=== PATIENT | female | born 1935 | race Caucasian/White ===

== ENCOUNTER 2016-11-17 12:27 | Observation (INO) ==
--- NOTE | 2016-11-17 16:59 | Emergency Department Note ---
Disposition Clinical Impression: Periorbital cellulitis Disposition: Admitted As Inpatient Condition: Good General Adult HPI - General Chief complaint: ED Skin/Abscess/Foreign Body Stated complaint: Cellulitis to face / R eye Time Seen by Provider: 11/17/16 16:38 Source: patient Limitations: no limitations - History of Present Illness Pain Scale: 0 - Related Data Home Medications Medication Instructions Recorded Confirmed [place]-3/Dha/Epa/Fish Oil [Fish Oil 1 each PO DAILY 11/07/16 11/17/16 1,000 mg Softgel] Amlodipine Besylate 10 mg PO DAILY 11/17/16 11/17/16 Calcium Carbonate/Vitamin D3 1 each PO DAILY 11/17/16 11/17/16 [Calcium 600-Vit D3 200 Tablet] Doxycycline Monohydrate [Mondoxyne 100 mg PO BID 11/17/16 11/17/16 Nl] Multivitamin [Multi-Day Vitamins] 1 each PO DAILY 11/17/16 11/17/16 Allergies Allergy/AdvReac Type Severity Reaction Status Date / Time Amoxicillin [From Augmentin] Allergy Itching Verified 11/17/16 12:45 clavulanic acid Allergy Itching Verified 11/17/16 12:45 [From Augmentin] levofloxacin [From Levaquin] Allergy Rash Verified 11/17/16 12:45 sulfamethoxazole Allergy Rash Verified 11/17/16 12:45 [From Bactrim] trimethoprim [From Bactrim] Allergy Rash Verified 11/17/16 12:45 metoprolol AdvReac Fainting Verified 11/17/16 19:28 Past Medical History - Past Medical History Medical history: Reports: hypertension, other Psychiatric history: Reports: anxiety ATTACHE history: Reports: no ATTACHE history - Social History Smoking Status: Never smoker Smokeless Tobacco Status: No Alcohol use: Reports: none Drug use: Reports: none Physical Exam - General Limitations: no limitations General appearance: alert, in no apparent distress Course - Reevaluation(s) Reevaluation #1: I saw the patient with the resident, Dr. Gibbons. Patient presents from her PCP office with concern for increasing facial cellulitis that is not responding to outpatient antibiotics. The patient fell about 2-1/2 weeks ago. She had a lot of bruising and abrasion to her face. Since then she developed redness to the area of her face where the bruising was on the right-hand side. She was started on Keflex without response. She was given Bactrim in addition but developed a rash from that. She was switched to Levaquin but developed a rash on that. She is currently on doxycycline and today went for reevaluation and reports that the redness is still spreading, so she sent here. Talking with the patient she says that although the redness seems to be spreading a bit, there is no pain and there is improvement in the swelling. Clinically I see no indication of retro-orbital involvement. It is hard for me to say that the cellulitis is not improving on outpatient treatment. Although the redness is spreading by history, all the other things that one would expect with cellulitis are improving. We did do an evaluation to decide whether she actually got active cellulitis because there is no reason to admit her to the hospital for IV antibiotics if she is already getting better. We will do some lab work and some imaging. Disposition will be based on diagnostic results and reevaluation. Time: 17:04 Vital Signs Temperature 98.0 F 11/17/16 12:38 Pulse Rate 82 11/17/16 12:38 Respiratory Rate 17 11/17/16 12:38 Blood Pressure 170/77 11/17/16 12:38 O2 Sat by Pulse Oximetry 97 11/17/16 12:38 Temperature 98.0 F 11/17/16 20:38 Pulse Rate 78 11/17/16 20:38 Respiratory Rate 17 11/17/16 20:38 Blood Pressure 145/57 11/17/16 20:38 O2 Sat by Pulse Oximetry 95 11/17/16 20:38 Oxygen Delivery Oxygen Delivery Room Air Medical Decision Making - Lab Data Result diagrams: 11/17/16 17:14 11/17/16 17:14 Lab Results 11/17/16 11/17/16 11/17/16 Range/Units 17:14 17:14 17:14 WBC 7.9 (4.3-11.1) K/mcL RBC 4.58 (3.82-4.97) M/mcL Hgb 13.7 (11.5-15.4) g/dL Hct 40.7 (35.3-44.9) % MCV 88.9 (83.0-100.0) fL MCH 29.9 (28.0-33.3) pg MCHC 33.7 (31.6-35.5) g/dL RDW 13.4 (11.5-14.5) % Plt Count 273 (140-400) K/mcL MPV 10.8 (9.4-12.4) fL Immature Gran % 0.8 (0-4) % Seg Neutrophils % 63.9 % Lymphocytes % 27.6 % Monocytes % 6.3 % Eosinophils % 0.8 % Basophils % 0.6 % Neutrophils # 5.1 (1.6-8.9) K/mcL Lymphocytes # 2.2 (0.6-4.6) K/mcL Monocytes # 0.5 (0.0-1.3) K/mcL Eosinophils # 0.1 (0.0-0.6) K/mcL Basophils # 0.1 (0.0-0.2) K/mcL ESR 25 H (0-15) mm/hr Sodium 137 (136-145) mEq/L Potassium 3.8 (3.5-4.5) mEq/L Chloride 100 (98-109) mEq/L Carbon Dioxide 28 (19-29) mEq/L BUN 10 (7-20) mg/dL Creatinine 0.67 (0.57-1.11) mg/dL Est GFR ( Amer) > 60 (> 60) Est GFR (Non-Af Amer) > 60 (> 60) BUN/Creatinine Ratio 15 (6-26) Glucose 95 (70-99) mg/dL Calculated Osmolality 283 (280-300) Calcium 9.3 (8.6-10.8) mg/dL Attestation Statement - Attestation Attestation: I, Dr. Mena, examined this patient [id number] and my medical decision- making was reviewed with Dr. Gibbons, Resident Physician. I agree with the documented findings, disposition and treatment plan as described except to the extent set forth below. Please see my progress notes for details.
[2016-11-17] MEDS ORDERED: 0.9 % Sodium Chloride 500 ML IVC ONE (17:17)
--- NOTE | 2016-11-17 17:20 | Emergency Department Note ---
Disposition Clinical Impression: Periorbital cellulitis Qualifiers: Laterality: right Qualified Code(s): L03.213 - Periorbital cellulitis Disposition: Admitted As Inpatient Condition: Good Referrals: Shaquille Krishnamurthy MD [Primary Care Provider] - Forms: ED Satisfaction Letter Skin/Abscess/FB HPI Chief complaint: ED Skin/Abscess/Foreign Body Stated complaint: Cellulitis to face / R eye Time Seen by Provider: 11/17/16 16:38 Source: patient Mode of arrival: private vehicle Limitations: no limitations Nursing Notes Reviewed: Yes Vital Signs Reviewed: Yes HPI Narrative: 81-year-old female presents to the ER from her primary care provider due to concern for cellulitis and for IV antibiotics. Patient reports that she fell roughly 2 weeks ago landing on her face on the sidewalk. The patient was seen at that time had some bruising around her right eye had a head CT scan and was discharged home. Patient reports she started having some redness around that eye that her family provider started treating. Patient was originally on Keflex. After a few days it did not improve so her primary care provider added Bactrim. She states that she broke out in a rash with acid A started and started her on Levaquin. During that time the patient also developed a rash to Levaquin and was placed on doxycycline. Patient was seen today by her PCP who saw that the redness was worsening and sent her here for admission and IV antibiotics for failed outpatient treatment. Patient reports that the swelling is actually better since the redness that has worsened. She denies any fevers chills nausea vomiting or diarrhea. No pain with eye movements. No other complaints. Pt Subjective Complaint: rash Onset (ago): week(s) (2) Tetanus Up to Date: yes Location: face Severity: moderate Improves with: none Worsens with: none Context: other (Recent fall) Associated symptoms: Reports: denies other symptoms Treatments prior to arrival: other (Multiple antibiotics) Home Medications Medication Instructions Recorded Confirmed [place]-3/Dha/Epa/Fish Oil [Fish Oil 1 each PO DAILY 11/07/16 11/17/16 1,000 mg Softgel] Amlodipine Besylate 10 mg PO DAILY 11/17/16 11/17/16 Calcium Carbonate/Vitamin D3 1 each PO DAILY 11/17/16 11/17/16 [Calcium 600-Vit D3 200 Tablet] Doxycycline Monohydrate [Mondoxyne 100 mg PO BID 11/17/16 11/17/16 Nl] Multivitamin [Multi-Day Vitamins] 1 each PO DAILY 11/17/16 11/17/16 Allergies Allergy/AdvReac Type Severity Reaction Status Date / Time Amoxicillin [From Augmentin] Allergy Itching Verified 11/17/16 12:45 clavulanic acid Allergy Itching Verified 11/17/16 12:45 [From Augmentin] levofloxacin [From Levaquin] Allergy Rash Verified 11/17/16 12:45 sulfamethoxazole Allergy Rash Verified 11/17/16 12:45 [From Bactrim] trimethoprim [From Bactrim] Allergy Rash Verified 11/17/16 12:45 metoprolol AdvReac Fainting Verified 11/17/16 19:28 All systems ED: reviewed and negative except as stated. Constitutional: Denies: fever, chills Eyes: Denies: eye pain, eye discharge, vision change Cardiovascular: Denies: chest pain Respiratory: Denies: cough Gastrointestinal: Denies: vomiting, diarrhea Integumentary: Reports: rash, abrasion Past Medical History - Past Medical History Attestation: Yes The following information was validated with the patient. 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 There is no overlying ecchymosis. No tenderness to palpation.) - Eye Eye exam: Present: normal appearance, PERRL, EOMI (No pain with extraocular movements.) - Expanded Eye Exam Pupils: Bilateral: regular, round, reactive - ENT ENT exam: normal exam, normal oropharynx, mucous membranes moist - Expanded ENT Exam External ear exam: Present: normal external inspection Mouth exam: Present: normal external inspection Teeth exam: Present: normal inspection Throat exam: Present: normal inspection - Neck Neck exam: Present: normal inspection, full ROM - Chest Chest inspection: Present: normal inspection, symmetric chest wall rise - Respiratory Respiratory exam: Present: normal lung sounds bilaterally - Cardiovascular Cardiovascular exam: Present: regular rate, normal rhythm, normal heart sounds - Abdominal Exam Abdominal exam: Present: soft, Non-Tender. Absent: tenderness, distention, rigidity - Extremities Exam Extremities exam: Present: normal inspection, full ROM - Expanded Upper Extremity Exam Shoulder exam: Present: normal inspection, full ROM Arm exam: Present: normal inspection, full ROM Elbow exam: Present: normal inspection, full ROM Forearm/Wrist exam: Present: normal inspection, full ROM Hand exam: Present: normal inspection, full ROM - Expanded Lower Extremity Exam Hip/Pelvis exam: Present: normal inspection, full ROM Upper leg exam: Present: normal inspection, full ROM Knee exam: Present: normal inspection, full ROM Lower leg exam: Present: normal inspection, full ROM Ankle exam: Present: normal inspection, full ROM Foot/toe exam: Present: normal inspection, full ROM - Neurological Exam Neurological exam: Present: alert, oriented X3 - Expanded Neurological Exam Coma Scale Eye Opening: Spontaneous Coma Scale Motor Response: Obeys Commands Coma Scale Verbal Response: Oriented Coma Scale Total: 15 - Psychiatric Psychiatric exam: Present: normal affect, normal mood - Skin Skin exam: Present: dry, intact, normal color, erythema (There is overlying erythema over the right periorbital region extending down to the right cheek. There is also some erythema going over the patient's frontal region) Course Course Narrative: Patient seen and examined. Vital signs reviewed. It sounds like the patient is no multiple antibiotics as an outpatient. Her swelling is improving but she reports the redness has worsened. She has no constitutional symptoms. Patient was sent here by her PCP for IV antibiotics. She has no tenderness with eye movement or proptosis to suggest an orbital cellulitis. Unclear whether this is secondary to the trauma or a cellulitis. We will get some basic labs and patient agreeable with a CT scan of the facial bones. - Reevaluation(s) Reevaluation #1: I discussed the results of the CT scan and lab work with the patient and family. They are in agreement to be admitted to the hospital for IV antibiotics. Vital Signs Temperature 98.0 F 11/17/16 12:38 Pulse Rate 82 11/17/16 12:38 Respiratory Rate 17 11/17/16 12:38 Blood Pressure 170/77 11/17/16 12:38 O2 Sat by Pulse Oximetry 97 11/17/16 12:38 Temperature 98.0 F 11/17/16 12:38 Pulse Rate 89 11/17/16 19:11 Respiratory Rate 16 11/17/16 19:11 Blood Pressure 162/77 11/17/16 19:11 O2 Sat by Pulse Oximetry 97 11/17/16 12:38 Oxygen Delivery Oxygen Delivery Room Air Skin/Abscess/Foreign Body - MDM Narrative Medical decision making narrative: 81-year-old female presents to the ER due to doubt outpatient therapy with cellulitis of the right eye and face. Patient sustained a mechanical fall 2 weeks ago. Patient was seen at that time had CT imaging which was negative. Reports that since then she has had redness that has progressed despite multiple antibiotics by her PCP. Patient was initially on Keflex. Bactrim was added that she had an adverse reaction as well as with Levaquin. Patient continues on doxycycline at this time but was seen by her PCP today who sent her over for worsening cellulitis. Patient has no features to suggest orbital cellulitis. She has no pain with extraocular movement. She has no proptosis. CT scan of the facial bones with contrast reported by radiology as suggesting cellulitis. Lab work here shows no acute abnormalities. Patient given a dose of IV clindamycin here. Admitted to the hospitalist service for periorbital cellulitis, failed outpatient therapy. - Lab Data Lab results reviewed: Yes I reviewed the patient's lab results. Result diagrams: 11/17/16 17:14 11/17/16 17:14 Lab Results 11/17/16 11/17/16 11/17/16 Range/Units 17:14 17:14 17:14 WBC 7.9 (4.3-11.1) K/mcL RBC 4.58 (3.82-4.97) M/mcL Hgb 13.7 (11.5-15.4) g/dL Hct 40.7 (35.3-44.9) % MCV 88.9 (83.0-100.0) fL MCH 29.9 (28.0-33.3) pg MCHC 33.7 (31.6-35.5) g/dL RDW 13.4 (11.5-14.5) % Plt Count 273 (140-400) K/mcL MPV 10.8 (9.4-12.4) fL Immature Gran % 0.8 (0-4) % Seg Neutrophils % 63.9 % Lymphocytes % 27.6 % Monocytes % 6.3 % Eosinophils % 0.8 % Basophils % 0.6 % Neutrophils # 5.1 (1.6-8.9) K/mcL Lymphocytes # 2.2 (0.6-4.6) K/mcL Monocytes # 0.5 (0.0-1.3) K/mcL Eosinophils # 0.1 (0.0-0.6) K/mcL Basophils # 0.1 (0.0-0.2) K/mcL ESR 25 H (0-15) mm/hr Sodium 137 (136-145) mEq/L Potassium 3.8 (3.5-4.5) mEq/L Chloride 100 (98-109) mEq/L Carbon Dioxide 28 (19-29) mEq/L BUN 10 (7-20) mg/dL Creatinine 0.67 (0.57-1.11) mg/dL Est GFR ( Amer) > 60 (> 60) Est GFR (Non-Af Amer) > 60 (> 60) BUN/Creatinine Ratio 15 (6-26) Glucose 95 (70-99) mg/dL Calculated Osmolality 283 (280-300) Calcium 9.3 (8.6-10.8) mg/dL - Radiology Data Radiology results reviewed: Yes I reviewed the patient's radiology results. Face CT 11/17/16 17:17 IMPRESSION: Findings are suggestive of cellulitis involving the right infraorbital subcutaneous soft tissues. No focal fluid collection is seen. Right frontal subcutaneous hematoma has nearly completely resolved. D/ /17/2016 18:43:47 Nico Fontanez MD / caleb Interpreting Provider: MD Ngoc Shukla - Ngoc Situation: Demographics, MOA Background: Presenting Complaint, Relevant PMH, Meds, & Allergies Assessment: Vital Signs, Course and respsone to treatment, Exam Concerns, Patient/Family Expectation, Pertinant Lab Results, Outstanding Labs Recommendation: Barrier(s) to disposition, Recommendation based on pending studies, treatments, or consults S.B.AJason Report Given to: Dr. Meme Grossman Repor Time: 19:54
[2016-11-17 17:23] LABS: Basophils # 0.1 K/mcL (0.0-0.2); Basophils % 0.6 %; Eosinophils # 0.1 K/mcL (0.0-0.6); Eosinophils % 0.8 %; Hematocrit 40.7 % (35.3-44.9); Hemoglobin 13.7 g/dL (11.5-15.4); Immature Granulocytes % 0.8 % (0-4); Lymphocytes # 2.2 K/mcL (0.6-4.6); Lymphocytes % 27.6 %; Mean Corpuscular HGB Conc 33.7 g/dL (31.6-35.5); Mean Corpuscular Hemoglobin 29.9 pg (28.0-33.3); Mean Corpuscular Volume 88.9 fL (83.0-100.0); Mean Platelet Volume 10.8 fL (9.4-12.4); Monocytes # 0.5 K/mcL (0.0-1.3); Monocytes % 6.3 %; Neutrophils # 5.1 K/mcL (1.6-8.9); Platelet Count 273 K/mcL (140-400); Red Blood Count 4.58 M/mcL (3.82-4.97); Red Cell Distribution Width 13.4 % (11.5-14.5); Segmented Neutrophils % 63.9 %
[2016-11-17 17:32] LABS: BUN/Creatinine Ratio 15 (6-26); Blood Urea Nitrogen 10 mg/dL (7-20); Calcium 9.3 mg/dL (8.6-10.8); Carbon Dioxide 28 mEq/L (19-29); Chloride 100 mEq/L (98-109); Glucose 95 mg/dL (70-99); Osmolality,Calculated 283 (280-300); Potassium 3.8 mEq/L (3.5-4.5); Sodium 137 mEq/L (136-145); eGFR For African Americans > 60 (> 60); eGFR For Non-African Americans > 60 (> 60)
[2016-11-17] MEDS ORDERED: Clindamycin 600 MG/50 ML 600 MG/50 ML IV.SOLN IVPB ONE (18:58)
--- NOTE | 2016-11-17 20:39 | Internal Med History&Physical ---
Date of Encounter: 11/17/16 Time of Encounter: 20:37 Assessment and Plan (1) Periorbital cellulitis Current visit: Yes Status: Acute Patient with a periorbital cellulitis which has failed outpatient antibiotic therapy, therefore we will initiate broad-spectrum antibiotics. However, she has multiple allergies to medications which makes the choice of antibiotic therapy more challenging. We will give IV vancomycin along with coverage for gram-negative bacteria with aztreonam. We will request a consultation with our infectious disease team for further management recommendations. Qualifiers: Laterality: right Qualified Code(s): L03.213 - Periorbital cellulitis Internal Medicine - H&P: HPI Chief complaint: Facial swelling Admitted From: Emergency Dept Plans for Post Hospital Care: Home History of present illness: Ms. Saleem is a 81 year old female with medical history of hypertension. She is states that 2 weeks ago had a fall while she was walking at the parking lot of the [facility] and hit her face. Afterwards developed some swelling and redness in the right periorbital area. She went to see her primary care physician and was prescribed multiple courses of antibiotics. She initially was given Keflex she did not respond to it and then was prescribed Bactrim and developed a rash then Levaquin she also developed a rash after Levaquin. She was also given some steroids. She started to take Medrol Dosepak on Wednesday along with doxy and today went to see her primary care physician and due to the fact that the swelling and redness was not getting any better she was advised to come to the ED to seek medical attention. Upon arrival to the emergency department her blood pressure was 170/77, heart rate was 82, The rate was 17, oxygen saturation was 97%. Initial blood work revealed a WBC count of 7.9, hemoglobin 13.7, hematocrit 40.7, platelet count 273,000. Sodium 137, potassium 3.8, chloride 100, bicarbonate 28, BUN 10, creatinine 0.67, glucose 95. She had a CT scan of the face which revealed a cellulitis involving the right infraorbital subcutaneous soft tissues, no evidence of abscesses were noted in the CAT scan. The patient was given a dose of clindamycin in the emergency department and was admitted for further management and workup. Patient denies fever, blurry vision, headache, syncope, loss of consciousness, dysuria, diarrhea, constipation, cough. She is otherwise pleasant, her son was present during this encounter. Past Med Surg Social Fam HX - Past Medical History Medical history: hypertension, other Psychiatric history: anxiety - Past Surgical History Surgical History: non-contributory - Social History Smoking Status: Never smoker Smokeless Tobacco Status: No Alcohol use: none Drug use: none Internal Medicine - H&P: Meds [place]-3/Dha/Epa/Fish Oil [Fish Oil 1,000 mg Softgel] 1 each PO DAILY 11/07/16 [ History] Amlodipine Besylate 10 mg PO DAILY 11/17/16 [History] Calcium Carbonate/Vitamin D3 [Calcium 600-Vit D3 200 Tablet] 1 each PO DAILY [History] Doxycycline Monohydrate [Mondoxyne Nl] 100 mg PO BID 11/17/16 [History] Multivitamin [Multi-Day Vitamins] 1 each PO DAILY 11/17/16 [History] Allergies Amoxicillin [From Augmentin] Allergy (Verified 11/17/16 12:45) Itching clavulanic acid [From Augmentin] Allergy (Verified 11/17/16 12:45) Itching levofloxacin [From Levaquin] Allergy (Verified 11/17/16 12:45) Rash sulfamethoxazole [From Bactrim] Allergy (Verified 11/17/16 12:45) Rash trimethoprim [From Bactrim] Allergy (Verified 11/17/16 12:45) Rash metoprolol Adverse Reaction (Verified 11/17/16 19:28) Fainting All Systems PM: A 10-system review of systems was performed and is negative for pertinent findings except as documented above in the HPI. - Constitutional Constitutional: as per HPI, no chills, no fever(s), no night sweats - EENT Eyes: as per HPI, no change in vision, no discharge, no pain, no photophobia Ears: as per HPI, no ear discharge, no ear pain, no tinnitus Nose, mouth and throat: as per HPI, no dysphagia, no nasal discharge, no neck pain, no sore throat - Breasts Breasts: as per HPI - Cardiovascular Cardiovascular ROS IM: as per HPI, no chest pain, no diaphoresis, no dyspnea, no lightheadedness, no palpitations, no syncope - Respiratory Respiratory: as per HPI, no cough, no dyspnea, no wheezing, no excessive phlegm production - Gastrointestinal Gastrointestinal: as per HPI, no abdominal pain, no diarrhea, no hematemesis, no hematochezia, no melena, no nausea, no vomiting - Genitourinary Genitourinary: as per HPI, no change in urinary stream, no dysuria, no flank pain, no hematuria Menstruation: as per HPI - Musculoskeletal Musculoskeletal ROS IM: as per HPI, no numbness, no tingling - Integumentary Integumentary IM: as per HPI, no rash, no unusual bruising - Neurological Neurological ROS: as per HPI, no confusion, no convulsions, no focal weakness, no numbness, no tingling, no tremor(s) - Psychiatric Psychiatric: as per HPI - Endocrine Endocrine IM: as per HPI - Hematologic/Lymphatic Hematologic/Lymphatic: as per HPI, no easy bruising - Allergic/Immunologic Allergic/Immunologic: as per HPI - Constitutional Vitals: Temp Pulse Resp BP Pulse Ox 98.0 F 89 16 140/66 97 11/17/16 12:38 11/17/16 19:11 11/17/16 20:20 11/17/16 20:20 11/17/16 12:38 General appearance: Present: cooperative, pleasant, no acute distress Exam: There is an area of erythema and crusting overlying the right periorbital region extending down to the right cheek. There is no overlying ecchymosis. No tenderness to palpation. - Head Head exam: Present: atraumatic, normocephalic - Eye Eye exam: Present: PERRL, conjuntiva pink, sclera anicteric Pupils: Present: PERRL - Neck Neck exam general surgery: Present: supple, trachea midline. Absent: lymphadenopathy - Respiratory Respiratory exam: Present: CTAB. Absent: accessory muscle use, rales, rhonchi, wheezes - Cardiovascular Cardiovascular exam: Present: RRR, +S1, +S2. Absent: diastolic murmur, gallop, rubs, systolic murmur - GI/Abdominal GI/Abdominal exam: Present: normal bowel sounds, soft, no peritoneal signs. Absent: distended, tenderness - Extremities Exam Extremities exam: Present: warm, radial pulses palpable and symetrical. Absent : calf tenderness, cyanotic, pedal edema - Neurological Exam Neurological exam: Present: CN II-XII intact, oriented X3, no focal deficits. Absent: pronater drift, facial droop, speech deficit - Skin Skin exam: Present: dry, intact Internal Med - H&P Results - Labs CBC & Chem 7: 11/17/16 17:14 11/17/16 17:14
[2016-11-17] MEDS ORDERED: Naloxone 0.4 MG/ML INJ IVP PRN (21:03)
[2016-11-17] MEDS ORDERED: Acetaminophen 325 MG TABLET PO PRN (21:03)
[2016-11-17] MEDS ORDERED: Ondansetron 4 MG/2 ML VIAL IVP PRN (21:03)
[2016-11-17] MEDS ORDERED: Vancomycin 1,000 MG in D5% in Water 250 ML IVPB SCH ×2 (22:00)
[2016-11-17] MEDS: Aztreonam 1,000 MG in D5% in Water (Mini-Bag+) 100 ML IVPB SCH (23:40)
[2016-11-18] MEDS: *HR* Heparin 5,000 UNIT/ML VIAL SQ SCH ×2 (05:27→17:10)
[2016-11-18 05:44] LABS: Basophils % 0.5 %; Eosinophils # 0.3 K/mcL (0.0-0.6); Eosinophils % 3.5 %; Hemoglobin 12.5 g/dL (11.5-15.4); Immature Granulocytes % 0.6 % (0-4); Lymphocytes % 25.9 %; Mean Corpuscular HGB Conc 32.1 g/dL (31.6-35.5); Mean Corpuscular Hemoglobin 28.9 pg (28.0-33.3); Mean Corpuscular Volume 90.1 fL (83.0-100.0); Mean Platelet Volume 10.5 fL (9.4-12.4); Monocytes # 0.5 K/mcL (0.0-1.3); Monocytes % 6.8 %; Neutrophils # 4.9 K/mcL (1.6-8.9); Platelet Count 258 K/mcL (140-400); Red Blood Count 4.33 M/mcL (3.82-4.97); Red Cell Distribution Width 13.6 % (11.5-14.5); Segmented Neutrophils % 62.7 %
[2016-11-18 05:48] LABS: INR 1.1; Prothrombin Time 11.5 Seconds (9.4-12.1)
[2016-11-18] MEDS ORDERED: Famotidine 20 MG/2 ML VIAL IVP SCH (06:00)
[2016-11-18 06:03] LABS: Alanine Aminotransferase 14 Units/L (0-55); Albumin 3.5 g/dL (3.5-5.0); Albumin/Globulin Ratio 1.1 (1.1-2.2); Alkaline Phosphatase 50 Units/L (38-126); Aspartate Amino Transferase 13 Units/L (5-34); BUN/Creatinine Ratio 23 (6-26); Bilirubin,Total 0.3 mg/dL (0.2-1.2); Blood Urea Nitrogen 15 mg/dL (7-20); C-Reactive Protein 0 mg/L (Less than 5); Calcium 8.8 mg/dL (8.6-10.8); Carbon Dioxide 26 mEq/L (19-29); Chloride 103 mEq/L (98-109); Globulin 3.3 g/dL (2.4-3.5); Glucose 84 mg/dL (70-99); Magnesium 2.1 mg/dL (1.6-2.6); Osmolality,Calculated 282 (280-300); Sodium 136 mEq/L (136-145); Total Protein 6.8 g/dL (6.0-8.3); eGFR For African Americans > 60 (> 60); eGFR For Non-African Americans > 60 (> 60)
[2016-11-18] MEDS: Aztreonam 1,000 MG in D5% in Water (Mini-Bag+) 100 ML IVPB SCH ×2 (07:47→17:11)
[2016-11-18] MEDS ORDERED: amLODIPine 5 MG TABLET PO SCH (09:00)
--- NOTE | 2016-11-18 09:16 | Internal Med Progress Note ---
Date of Encounter: 11/18/16 Time of Encounter: 09:14 - Assessment and plan (1) Periorbital cellulitis Current Visit: Yes Status: Acute Assessment and plan: Continue Broad spectrum IV abx (Vancomycin and Aztreonam) at this time Pharmacy to dose abx and monitor Vanco trough Infectious disease consultation requested patient improving clinically will continue to monitor Qualifiers: Laterality: right Qualified Code(s): L03.213 - Periorbital cellulitis (2) Hypertension Current Visit: Yes Status: Acute Assessment and plan: BP within acceptable range Continue home medications Qualifiers: Hypertension type: essential hypertension Qualified Code(s): I10 - Essential (primary) hypertension (3) DVT prophylaxis Current Visit: Yes Status: Acute Assessment and plan: Heparin SQ - Subjective Interval history: Patient is a 81y/o female who is admitted for periorbital cellulitis s/p failing outpatient abx therapy. Patient seen and examined at bedside. resting in chair and reports of feeling better. Denies any pain or vision loss at this time. - Constitutional Vitals: Temp Pulse Resp BP Pulse Ox 98.5 F 64 18 146/78 98 11/18/16 06:44 11/18/16 06:44 11/18/16 06:44 11/18/16 06:44 11/18/16 06:44 General appearance: Present: cooperative, A&O X 3, pleasant, no acute distress - Head Head exam: Present: atraumatic, normocephalic - Eye Eye exam: Present: EOMI (erythema overlying the right periorbital region, no ecchymosis/no tenderness to palpation, no vision loss/changes), PERRL, conjuntiva pink, sclera anicteric - Respiratory Respiratory exam: Present: CTAB. Absent: accessory muscle use, rales, rhonchi, wheezes - Cardiovascular Cardiovascular exam: Present: RRR, +S1, +S2. Absent: diastolic murmur, gallop, rubs, systolic murmur - GI/Abdominal GI/Abdominal exam: Present: normal bowel sounds, soft, no peritoneal signs. Absent: distended, tenderness - Extremities Exam Extremities exam: Present: warm, radial pulses palpable and symetrical. Absent : calf tenderness, cyanotic, pedal edema - Neurological Exam Neurological exam: Present: alert, oriented X3 - Psychiatric Psychiatric exam: Present: normal affect, normal mood Internal Medicine: Result - Labs CBC & Chem 7: 11/18/16 05:07 11/18/16 05:07 Labs: Short CBC 11/18/16 Range/Units 05:07 WBC 7.8 (4.3-11.1) K/mcL Hgb 12.5 (11.5-15.4) g/dL Hct 39.0 (35.3-44.9) % Plt Count 258 (140-400) K/mcL Neutrophils # 4.9 (1.6-8.9) K/mcL BMP 11/18/16 05:07 Sodium 136 Potassium 4.0 Chloride 103 Carbon Dioxide 26 BUN 15 Creatinine 0.66 Glucose 84 Calcium 8.8 Liver Function 11/18/16 Range/Units 05:07 Total Bilirubin 0.3 (0.2-1.2) mg/dL AST 13 (5-34) Units/L ALT 14 (0-55) Units/L Alkaline Phosphatase 50 (38-126) Units/L Albumin 3.5 (3.5-5.0) g/dL - ABG Interpretation ABG results: PT/INR, D-dimer PT 11.5 Seconds (9.4-12.1) 11/18/16 05:07 Consult Discharge Plan - Plan Referrals: Shaquille Krishnamurthy MD [Primary Care Provider] -
--- NOTE | 2016-11-18 11:22 | Infectious Disease Consult ---
Date of Encounter: 11/18/16 Time of Encounter: 11:18 Assessment and Plan (1) Periorbital cellulitis Status: Acute Assessment and plan: Location: Right periorbital region. Causative organism unclear. Likely secondary to trauma to the affected region. Failed outpatient therapy with Keflex. Had allergic reaction to Levaquin and Bactrim. Appears to be improving with IV Aztreonam and Vancomycin. No SIRS criteria. Continue Aztreonam 1 gram IV Q8H. Continue Vancomycin IV. Pharmacy to dose. Goal trough 10-15. Start probiotics BID. Duration of treatment depends on the clinical picture, but likely a total of 10- 14 days. Will likely be able to switch back to orals when ready for discharge. Monitor renal function and for drug toxicity and dose-adjust antibiotics. Qualifiers: Laterality: right Qualified Code(s): L03.213 - Periorbital cellulitis (2) Hypertension Status: Chronic Assessment and plan: Management per the primary team. Qualifiers: Hypertension type: essential hypertension Qualified Code(s): I10 - Essential (primary) hypertension Infectious Disease HPI - Data of Consult Patient: new to practice Consult date: 11/18/16 Requesting Physician: Radha Thompson Primary Care Provider: Shaquille Krishnamurthy MD - Consult Narrative Reason for consult: Preseptal cellulitis History of present illness: Ms. Saleem is a 81 year old female with a past medical history of hypertension. The patient was admitted to the hospital November 17 for preseptal cellulitis. We are consulted November 18 for antibiotic recommendations for preseptal cellulitis. The patient is a 81-year-old female with past medical history as stated above. The patient reports that approximately 2 and half weeks ago she sustained a fall and had an abrasion to the forehead. She states that about a week after the fall she noticed that there was a scab that was red. She would Urgentcare was started on Keflex. She saw her primary care provider couple of days later was started on Bactrim. The Bactrim for chronic rashes she was switched to Levaquin. She again developed a rash and was subsequently switched to Levaquin. The rash got worse so she was told by her primary care provider to go to the emergency department. Upon arrival, the patient was afebrile and hemodynamically stable. Her laboratory studies revealed a normal white blood cell count. ESR was mildly elevated at 25. CT of the face showed cellulitis of the right infraorbital subcutaneous soft tissues. There is no evidence of fluid collection or abscess. She was given a dose of IV clindamycin in the ER and subsequently admitted for further evaluation and treatment. Since admission, the patient's white blood cell count has remained normal. She has remained afebrile. Her ESR has normalized. She was started on IV aztreonam and vancomycin. We've been asked to evaluate and make further recommendations. During my exam today, the patient endorses a history as stated above. She denies any fevers or chills or rigors. She denies any headache or neck pain. She denies any pain at the site of the infection. She denies any recent upper respiratory symptoms or sinusitis. She does report that as the redness progressed the skin to the affected area started to peel. She denies any blurred vision or floaters. She denies any pain with movement of her eye. She reports that her eyelid was swollen, but this is improved since being on IV antibiotics. She has a chest pain, shortness of breath, or cough. She denies any nausea, vomiting, diarrhea, constipation. She denies abdominal pain or appetite changes. She denies pain in the neck, back, lower extremities. She states that overall she feels well. The patient lives at home with her son. 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 She denies any recent travel. She denies any alcohol, tobacco, or illicit drug use. CC: Radha Thompson Past Med Surg Social Fam HX - Past Medical History Attestation: Yes The following information was validated with the patient. Source: patient, old records reviewed, nursing notes reviewed Medical history: hypertension, other Psychiatric history: anxiety - Past Surgical History Surgical History: non-contributory - Social History Smoking Status: Never smoker Smokeless Tobacco Status: No Alcohol use: none Drug use: none Occupational status: employed Current living situation: Home, With Family Activity Level: Independent ambulation Recent Out of Country Travel Within the Last 8 Weeks: No Exposure or Possible Exposure to Illness During Travel: No - Family History Father Hx Family Cardiac Disorders: Yes Hx Family Respiratory Disorders: No Hx Family Cancer: No Hx Family GI Disorders: No Hx Family Genitourinary Disorders: No Hx Family Endocrine Disorder: No Hx Family Musculoskeletal Disorders: No Hx Family Neuromuscular Disorders: No Hx Family Neurologic Disorders: Yes Hx Family HEENT Disorders: No Hx Family Autoimmune Disorders: No Hx Family Reproductive Disorders: No Hx Family Psychosocial Disorders: No Hx Family Medical Disorders: No Infectious Disease-CN:Meds Spring-3/Dha/Epa/Fish Oil [Fish Oil 1,000 mg Softgel] 1 each PO DAILY 11/07/16 [ History] Amlodipine Besylate 10 mg PO DAILY 11/17/16 [History] Calcium Carbonate/Vitamin D3 [Calcium 600-Vit D3 200 Tablet] 1 each PO DAILY [History] Doxycycline Monohydrate [Mondoxyne Nl] 100 mg PO BID 11/17/16 [History] Multivitamin [Multi-Day Vitamins] 1 each PO DAILY 11/17/16 [History] Allergies Amoxicillin [From Augmentin] Allergy (Verified 11/17/16 12:45) Itching clavulanic acid [From Augmentin] Allergy (Verified 11/17/16 12:45) Itching levofloxacin [From Levaquin] Allergy (Verified 11/17/16 12:45) Rash sulfamethoxazole [From Bactrim] Allergy (Verified 11/17/16 12:45) Rash trimethoprim [From Bactrim] Allergy (Verified 11/17/16 12:45) Rash metoprolol Adverse Reaction (Verified 11/17/16 19:28) Fainting All systems: reviewed and no additional remarkable complaints except as stated Exam - Constitutional Vitals: Temp Pulse Resp BP Pulse Ox 98.5 F 64 18 146/78 98 11/18/16 06:44 11/18/16 06:44 11/18/16 06:44 11/18/16 06:44 11/18/16 06:44 General appearance: average body habitus, cooperative, no acute distress - Head Head exam: Present: atraumatic, normal inspection, normocephalic - Eye Eye exam: Present: EOMI, PERRL Pupils: Present: normal accommodation Additional comments: Erythema noted to the area surrounding the right eye involving the right upper and lower lids, forehead, and cheek. Non-tender. No warmth. Large amount of hydrocortisone cream to the area noted. - ENT ENT exam: Present: mucous membranes moist - Neck Neck exam: Present: normal inspection - Respiratory Respiratory exam: Present: CTAB. Absent: rales, respiratory distress, rhonchi, wheezes - Cardiovascular Cardiovascular exam: Present: RRR, +S1, +S2 - GI/Abdominal GI/Abdominal exam: Present: normal bowel sounds, soft. Absent: distended, tenderness - Extremities Exam Extremities exam: Present: normal inspection. Absent: joint swelling, pedal edema, tenderness - Neurological Exam Neurological exam: Present: alert, oriented X3, no focal deficits - Psychiatric Psychiatric exam: Present: normal affect, normal mood - Skin Skin exam: Present: dry, intact, normal color, warm Infectious Disease CN: Results - Labs CBC & Chem 7: 11/18/16 05:07 11/18/16 05:07 Consult Discharge Plan - Plan Referrals: Shaquille Krishnamurthy MD [Primary Care Provider] -
[2016-11-18] MEDS: Vancomycin 1,000 MG in D5% in Water 250 ML IVPB SCH (14:51)
[2016-11-18] MEDS ORDERED: amLODIPine 5 MG TABLET PO ONE (15:45)
[2016-11-19] MEDS: Aztreonam 1,000 MG in D5% in Water (Mini-Bag+) 100 ML IVPB SCH ×3 (00:02→15:55)
[2016-11-19] MEDS: *HR* Heparin 5,000 UNIT/ML VIAL SQ SCH ×3 (06:07→17:47)
[2016-11-19 06:33] LABS: Basophils # 0.1 K/mcL (0.0-0.2); Eosinophils # 0.3 K/mcL (0.0-0.6); Eosinophils % 5.5 %; Hematocrit 38.2 % (35.3-44.9); Hemoglobin 12.3 g/dL (11.5-15.4); Immature Granulocytes % 0.6 % (0-4); Lymphocytes # 1.7 K/mcL (0.6-4.6); Lymphocytes % 31.9 %; Mean Corpuscular HGB Conc 32.2 g/dL (31.6-35.5); Mean Corpuscular Hemoglobin 28.9 pg (28.0-33.3); Mean Corpuscular Volume 89.7 fL (83.0-100.0); Mean Platelet Volume 10.7 fL (9.4-12.4); Monocytes # 0.4 K/mcL (0.0-1.3); Neutrophils # 2.8 K/mcL (1.6-8.9); Platelet Count 252 K/mcL (140-400); Red Blood Count 4.26 M/mcL (3.82-4.97); Red Cell Distribution Width 13.6 % (11.5-14.5)
[2016-11-19 06:50] LABS: BUN/Creatinine Ratio 15 (6-26); Blood Urea Nitrogen 9 mg/dL (7-20); Calcium 8.9 mg/dL (8.6-10.8); Carbon Dioxide 26 mEq/L (19-29); Chloride 102 mEq/L (98-109); Glucose 86 mg/dL (70-99); Magnesium 2.1 mg/dL (1.6-2.6); Osmolality,Calculated 280 (280-300); Phosphorous 3.9 mg/dL (2.3-4.7); Potassium 4.2 mEq/L (3.5-4.5); Sodium 136 mEq/L (136-145); eGFR For African Americans > 60 (> 60); eGFR For Non-African Americans > 60 (> 60)
[2016-11-19] MEDS ORDERED: NON-FORMULARY MEDICATION 1 EACH EACH (Calcium Carbonate/Vitamin D3 [Calcium 600-Vit D3 200 PO SCH (09:00)
[2016-11-19] MEDS: Cholecalciferol (D-3) 1,000 UNIT TABLET PO SCH (09:01)
[2016-11-19] MEDS: Multivit/Ca/Min/Fe/FA 1 TAB TABLET PO SCH (09:02)
[2016-11-19] MEDS: amLODIPine 5 MG TABLET PO SCH (09:03)
--- NOTE | 2016-11-19 09:18 | Internal Med Progress Note ---
Date of Encounter: 11/18/16 Time of Encounter: 08:50 - Assessment and plan (1) Periorbital cellulitis Current Visit: Yes Status: Acute Assessment and plan: Continue Broad spectrum IV abx (Vancomycin and Aztreonam) at this time Pharmacy to dose abx and monitor Vanco trough Infectious disease consultation appreciated Discharge planning initiated, will likely continue one more days of IV abx and transition to PO abx in am and discharge-awaiting further input by ID. patient improving clinically will continue to monitor Qualifiers: Laterality: right Qualified Code(s): L03.213 - Periorbital cellulitis (2) Hypertension Current Visit: Yes Status: Chronic Assessment and plan: BP within acceptable range Continue home medications Qualifiers: Hypertension type: essential hypertension Qualified Code(s): I10 - Essential (primary) hypertension (3) DVT prophylaxis Current Visit: Yes Status: Acute Assessment and plan: Heparin SQ - Subjective Interval history: Patient is a 81y/o female who is admitted for periorbital cellulitis s/p failing outpatient abx therapy. Seen and examined at bedside, resting in chair. Periorbital edema/erythema improved from previous day. No overnight issues reported. Pt denies any discomfort at this time. - Constitutional Vitals: Temp Pulse Resp BP Pulse Ox 97.8 F 76 16 154/68 96 11/19/16 06:43 11/19/16 06:43 11/19/16 06:43 11/19/16 06:43 11/19/16 06:43 General appearance: Present: cooperative, A&O X 3, pleasant, no acute distress - Head Head exam: Present: atraumatic, normocephalic - Eye Eye exam: Present: EOMI, PERRL, conjuntiva pink, sclera anicteric (right perioribital erythema extending to the right chin-improving). Absent: nystagmus - Respiratory Respiratory exam: Present: CTAB. Absent: accessory muscle use, rales, rhonchi, wheezes - Cardiovascular Cardiovascular exam: Present: RRR, +S1, +S2. Absent: diastolic murmur, gallop, rubs, systolic murmur - GI/Abdominal GI/Abdominal exam: Present: normal bowel sounds, soft, no peritoneal signs. Absent: distended, tenderness - Extremities Exam Extremities exam: Present: warm, radial pulses palpable and symetrical. Absent : calf tenderness, pedal edema - Neurological Exam Neurological exam: Present: alert, oriented X3, no focal deficits - Psychiatric Psychiatric exam: Present: normal affect, normal mood Internal Medicine: Result - Labs CBC & Chem 7: 11/19/16 06:08 11/19/16 06:08 Labs: Short CBC 11/19/16 Range/Units 06:08 WBC 5.2 (4.3-11.1) K/mcL Hgb 12.3 (11.5-15.4) g/dL Hct 38.2 (35.3-44.9) % Plt Count 252 (140-400) K/mcL Neutrophils # 2.8 (1.6-8.9) K/mcL BMP 11/19/16 06:08 Sodium 136 Potassium 4.2 Chloride 102 Carbon Dioxide 26 BUN 9 Creatinine 0.60 Glucose 86 Calcium 8.9 - ABG Interpretation ABG results: PT/INR, D-dimer PT 11.5 Seconds (9.4-12.1) 11/18/16 05:07 Consult Discharge Plan - Plan Referrals: Shaquille Krishnamurthy MD [Primary Care Provider] -
[2016-11-19] MEDS: (Omega-3/Dha/Epa/Fish Oil [Fish Oil 1,000 Mg Softgel] PO SCH (09:22)
--- NOTE | 2016-11-19 10:42 | Infectious Disease Progress No ---
Date of Encounter: 11/18/16 Time of Encounter: 10:39 - Assessment and Plan (1) Periorbital cellulitis Current Visit: Yes Status: Acute Location: Right periorbital region. Causative organism unclear. Likely secondary to trauma to the affected region. Failed outpatient therapy with Keflex. Had allergic reaction to Levaquin and Bactrim. Appears to be improving with IV Aztreonam and Vancomycin. No SIRS criteria. Continue Aztreonam 1 gram IV Q8H. Continue Vancomycin IV. Pharmacy to dose. Goal trough 10-15. Start probiotics BID. Duration of treatment depends on the clinical picture, but likely a total of 10- 14 days. Will likely be able to switch back to orals when ready for discharge. Consider switching to oral Clindamycin 300mg PO Q8H to complete course of treatment. Continue probiotics and encourage the patient to eat yogurt daily for the duration of antibiotics. Monitor renal function and for drug toxicity and dose-adjust antibiotics. Qualifiers: Laterality: right Qualified Code(s): L03.213 - Periorbital cellulitis (2) Hypertension Current Visit: Yes Status: Chronic Qualifiers: Hypertension type: essential hypertension Qualified Code(s): I10 - Essential (primary) hypertension - Subjective Interval history: Patient seen and examined. No acute events noted. Patient ambulating in her room. Denies fever or chills. Denies chest pain, shortness of breath, or cough. Denies nausea, vomiting, diarrhea, or constipation. Denies appetite changes or abdominal pain. Denies facial pain or blurred vision. Denies pain with ocular movement. States she thinks the erythema is improved. Infect Dis PN-Objective Data - Labs CBC & Chem 7: 11/19/16 06:08 11/19/16 06:08 Labs: Laboratory Results - last 24 hr 11/19/16 11/19/16 06:08 06:08 WBC 5.2 RBC 4.26 Hgb 12.3 Hct 38.2 MCV 89.7 MCH 28.9 MCHC 32.2 RDW 13.6 Plt Count 252 MPV 10.7 Immature Gran % 0.6 Seg Neutrophils % 53.0 Lymphocytes % 31.9 Monocytes % 8.0 Eosinophils % 5.5 Basophils % 1.0 Neutrophils # 2.8 Lymphocytes # 1.7 Monocytes # 0.4 Eosinophils # 0.3 Basophils # 0.1 Sodium 136 Potassium 4.2 Chloride 102 Carbon Dioxide 26 BUN 9 Creatinine 0.60 Est GFR ( Amer) > 60 Est GFR (Non-Af Amer) > 60 BUN/Creatinine Ratio 15 Glucose 86 Calculated Osmolality 280 Calcium 8.9 Phosphorus 3.9 Magnesium 2.1 Exam - Constitutional Vitals: Temp Pulse Resp BP Pulse Ox 97.8 F 76 16 154/68 96 11/19/16 06:43 11/19/16 06:43 11/19/16 06:43 11/19/16 06:43 11/19/16 06:43 General appearance: average body habitus, cooperative, no acute distress - Head Head exam: Present: atraumatic, normal inspection, normocephalic - Eye Eye exam: Present: EOMI, normal appearance. Absent: PERRL Pupils: Absent: normal accommodation Additional comments: Erythema noted to the right periorbital region extending up to the middle of the forehead, laterally approx 1 inch from the hairline, and down to the nasolabial fold. Appears improved and less scaly. No tenderness or warmth noted. Area of erythema improved since yesterday's exam. - ENT ENT exam: Present: mucous membranes moist - Neck Neck exam: Present: normal inspection - Respiratory Respiratory exam: Present: CTAB. Absent: rales, respiratory distress, rhonchi, wheezes - Cardiovascular Cardiovascular exam: Present: RRR, +S1, +S2 - GI/Abdominal GI/Abdominal exam: Present: normal bowel sounds, soft. Absent: distended, tenderness - Extremities Exam Extremities exam: Present: normal inspection. Absent: joint swelling, pedal edema, tenderness - Neurological Exam Neurological exam: Present: alert, oriented X3, no focal deficits - Psychiatric Psychiatric exam: Present: normal affect, normal mood - Skin Skin exam: Present: dry, intact, normal color, warm Consult Discharge Plan - Plan Referrals: Shaquille Krishnamurthy MD [Primary Care Provider] -
[2016-11-19] MEDS: Vancomycin 1,000 MG in D5% in Water 250 ML IVPB SCH (14:00)
[2016-11-19] MEDS: Lactobacillus 1 EACH CAP.SPRINK PO SCH ×2 (14:00→20:27)
[2016-11-20] MEDS: Aztreonam 1,000 MG in D5% in Water (Mini-Bag+) 100 ML IVPB SCH ×2 (00:39→07:48)
[2016-11-20] MEDS: *HR* Heparin 5,000 UNIT/ML VIAL SQ SCH (06:02)
[2016-11-20 06:54] LABS: Basophils % 0.5 %; Eosinophils # 0.3 K/mcL (0.0-0.6); Eosinophils % 4.5 %; Hematocrit 40.2 % (35.3-44.9); Hemoglobin 13.2 g/dL (11.5-15.4); Immature Granulocytes % 0.7 % (0-4); Lymphocytes % 33.9 %; Mean Corpuscular HGB Conc 32.8 g/dL (31.6-35.5); Mean Corpuscular Hemoglobin 29.5 pg (28.0-33.3); Mean Corpuscular Volume 89.9 fL (83.0-100.0); Mean Platelet Volume 10.6 fL (9.4-12.4); Monocytes # 0.5 K/mcL (0.0-1.3); Monocytes % 8.4 %; Platelet Count 269 K/mcL (140-400); Red Blood Count 4.47 M/mcL (3.82-4.97); Red Cell Distribution Width 13.7 % (11.5-14.5)
[2016-11-20 07:07] LABS: BUN/Creatinine Ratio 14 (6-26); Blood Urea Nitrogen 9 mg/dL (7-20); Carbon Dioxide 30 mEq/L (19-29); Chloride 101 mEq/L (98-109); Glucose 80 mg/dL (70-99); Magnesium 2.2 mg/dL (1.6-2.6); Osmolality,Calculated 280 (280-300); Phosphorous 3.7 mg/dL (2.3-4.7); Potassium 4.2 mEq/L (3.5-4.5); Sodium 136 mEq/L (136-145); eGFR For African Americans > 60 (> 60); eGFR For Non-African Americans > 60 (> 60)
[2016-11-20] MEDS: Multivit/Ca/Min/Fe/FA 1 TAB TABLET PO SCH (07:47)
[2016-11-20] MEDS: Cholecalciferol (D-3) 1,000 UNIT TABLET PO SCH (07:47)
[2016-11-20] MEDS: Lactobacillus 1 EACH CAP.SPRINK PO SCH (07:48)
[2016-11-20] MEDS: amLODIPine 5 MG TABLET PO SCH (07:48)
[2016-11-20] MEDS: (Omega-3/Dha/Epa/Fish Oil [Fish Oil 1,000 Mg Softgel] PO SCH (07:48)
--- NOTE | 2016-11-20 08:29 | Infectious Disease Progress No ---
Date of Encounter: 11/18/16 Time of Encounter: 08:27 - Assessment and Plan (1) Periorbital cellulitis Current Visit: Yes Status: Acute Location: Right periorbital region. Causative organism unclear. Likely secondary to trauma to the affected region. Failed outpatient therapy with Keflex. Had allergic reaction to Levaquin and Bactrim. Appears to be improving with IV Aztreonam and Vancomycin. No SIRS criteria. Continue Aztreonam 1 gram IV Q8H. Continue Vancomycin IV. Pharmacy to dose. Goal trough 10-15. Continue probiotics BID. Duration of treatment depends on the clinical picture, but likely a total of 10- 14 days. Will likely be able to switch back to orals when ready for discharge. Consider switching to oral Clindamycin 300mg PO Q8H to complete course of treatment. Continue probiotics and encourage the patient to eat yogurt daily for the duration of antibiotics. Discussed this with the patient. Monitor renal function and for drug toxicity and dose-adjust antibiotics. Qualifiers: Laterality: right Qualified Code(s): L03.213 - Periorbital cellulitis (2) Hypertension Current Visit: Yes Status: Chronic Qualifiers: Hypertension type: essential hypertension Qualified Code(s): I10 - Essential (primary) hypertension - Subjective Interval history: Patient seen and examined. No acute events noted. Patient lying in bed. Denies fever or chills. Denies chest pain, shortness of breath, or cough. Denies nausea , vomiting, diarrhea, or constipation. Denies appetite changes or abdominal pain. Denies facial pain or blurred vision. Denies pain with ocular movement. States she thinks the erythema is improved. Infect Dis PN-Objective Data - Labs CBC & Chem 7: 11/20/16 06:21 11/20/16 06:21 Labs: Laboratory Results - last 24 hr 11/20/16 11/20/16 06:21 06:21 WBC 5.8 RBC 4.47 Hgb 13.2 Hct 40.2 MCV 89.9 MCH 29.5 MCHC 32.8 RDW 13.7 Plt Count 269 MPV 10.6 Immature Gran % 0.7 Seg Neutrophils % 52.0 Lymphocytes % 33.9 Monocytes % 8.4 Eosinophils % 4.5 Basophils % 0.5 Neutrophils # 3.0 Lymphocytes # 2.0 Monocytes # 0.5 Eosinophils # 0.3 Basophils # 0.0 Sodium 136 Potassium 4.2 Chloride 101 Carbon Dioxide 30 H BUN 9 Creatinine 0.66 Est GFR ( Amer) > 60 Est GFR (Non-Af Amer) > 60 BUN/Creatinine Ratio 14 Glucose 80 Calculated Osmolality 280 Calcium 9.0 Phosphorus 3.7 Magnesium 2.2 Exam - Constitutional Vitals: Temp Pulse Resp BP Pulse Ox 98.2 F 75 18 155/67 97 11/20/16 06:48 11/20/16 06:48 11/20/16 06:48 11/20/16 06:48 11/20/16 06:48 General appearance: average body habitus, cooperative, no acute distress - Head Head exam: Present: atraumatic, normal inspection, normocephalic - Eye Eye exam: Present: EOMI, normal appearance, PERRL Pupils: Present: normal accommodation Additional comments: Erythema continues to improve. Skin dry and scaly today. No exudate. No pain with EOM movement. - ENT ENT exam: Present: mucous membranes moist - Neck Neck exam: Present: normal inspection - Respiratory Respiratory exam: Present: CTAB. Absent: rales, respiratory distress, rhonchi, wheezes - Cardiovascular Cardiovascular exam: Present: RRR, +S1, +S2 - GI/Abdominal GI/Abdominal exam: Present: normal bowel sounds, soft. Absent: distended, tenderness - Extremities Exam Extremities exam: Present: normal inspection. Absent: joint swelling, pedal edema, tenderness - Neurological Exam Neurological exam: Present: alert, oriented X3, no focal deficits - Psychiatric Psychiatric exam: Present: normal affect, normal mood - Skin Skin exam: Present: dry, intact, normal color, warm Consult Discharge Plan - Plan Referrals: Shaquille Krishnamurthy MD [Primary Care Provider] -
--- NOTE | 2016-11-20 08:36 | Discharge Summary ---
Date of Encounter: 11/18/16 Time of Encounter: 08:32 - Discharge Diagnosis (1) Periorbital cellulitis Priority: Primary Status: Acute Qualifiers: Laterality: right Qualified Code(s): L03.213 - Periorbital cellulitis (2) Hypertension Priority: Secondary Status: Chronic Qualifiers: Hypertension type: essential hypertension Qualified Code(s): I10 - Essential (primary) hypertension (3) DVT prophylaxis Priority: Secondary Status: Acute - Discharge Medications Prescriptions: Clindamycin HCl [Cleocin HCl] 300 mg PO Q8H #33 capsule Docusate [Colace] 100 mg PO BID PRN #20 capsule PRN Reason: Constipation Lactobacillus [Culturelle] 1 each PO BID #30 cap.sprink Home Medications: [place]-3/Dha/Epa/Fish Oil [Fish Oil 1,000 mg Softgel] 1 each PO DAILY 11/07/16 [ History] Amlodipine Besylate 10 mg PO DAILY 11/17/16 [History] Calcium Carbonate/Vitamin D3 [Calcium 600-Vit D3 200 Tablet] 1 each PO DAILY [History] Multivitamin [Multi-Day Vitamins] 1 each PO DAILY 11/17/16 [History] Clindamycin HCl [Cleocin HCl] 300 mg PO Q8H #33 capsule 11/20/16 [Rx] Docusate [Colace] 100 mg PO BID PRN #20 capsule 11/20/16 [Rx] Lactobacillus [Culturelle] 1 each PO BID #30 cap.sprink 11/20/16 [Rx] Allergies/Adverse Reactions: Allergies Amoxicillin [From Augmentin] Allergy (Verified 11/17/16 12:45) Itching clavulanic acid [From Augmentin] Allergy (Verified 11/17/16 12:45) Itching levofloxacin [From Levaquin] Allergy (Verified 11/17/16 12:45) Rash sulfamethoxazole [From Bactrim] Allergy (Verified 11/17/16 12:45) Rash trimethoprim [From Bactrim] Allergy (Verified 11/17/16 12:45) Rash metoprolol Adverse Reaction (Verified 11/17/16 19:28) Fainting Date of admission: 11/17/16 21:30 Primary care physician: Shaquille Krishnamurthy MD Consults: Infectious Disease: Angélica Galaviz [facility] Discharging clinician: Arline Ellis Anticipated date of discharge: 11/20/16 - Patient Status Disposition: Home, Self-Care Condition: Good Functional capacity at discharge: independent ambulation Overall status at discharge: patient is back to baseline - Discharge Instructions Follow Up With: Shaquille Krishnamurthy MD [Primary Care Provider] - Additional Instructions: Please follow up with your primary care physician within one week after your discharge from the hospital. Please follow up with infectious disease specialist (Angélica Galaviz CNP) within five days after your discharge from the hospital. Please continue to take oral antibiotic as prescribed to finish the antibiotic course for a total of 14 days. Please continue to take probiotic and yogurt daily for the entire duration of the antibiotic treatment. If you begin to have severe diarrhea while on antibiotic, please discontinue the antibiotic and call your doctor immediately. Please resume all your home medications as prescribed by your primary care physician. - Diet and Activity Activity: resume usual activities as tolerated Diet: low salt diet Hospital course: Ms. Saleem is a 81 year old female with PMH of hypertension who was admitted for management of periorbital cellulitis after failing outpatient treatment. Patient was started on broad spectrum IV antibiotics and infectious disease consultation was requested. Patient's symptoms improved significantly with IV antibiotics and as per ID's recommendations, patient can be transitioned to Clindamycin PO and finish treatment for 10-14 days. Patient is hemodynamically stable and will be discharged to home with oral antibiotics. She is educated about the adverse effects associated with Clindamycin including severe diarrhea and C-diff colitis. Patient demonstrates understanding of her diagnosis and agrees with the discharge care and plan. Pt is to follow up with PCP and ID after discharge. - Time Spent with Patient Total time spent providing and/or coordinating discharge services: Less than 30 minutes - Constitutional Vitals: Temp Pulse Resp BP Pulse Ox 98.2 F 75 18 155/67 97 11/20/16 06:48 11/20/16 06:48 11/20/16 06:48 11/20/16 06:48 11/20/16 06:48 General appearance: Present: cooperative, A&O X 3, pleasant, no acute distress - Head Head exam: Present: atraumatic, normocephalic - Eye Eye exam: Present: EOMI, normal appearance, PERRL, conjuntiva pink, sclera anicteric (mild periorbital erythema ) - Respiratory Respiratory exam: Present: CTAB. Absent: accessory muscle use, rales, rhonchi, wheezes - Cardiovascular Cardiovascular exam: Present: RRR, +S1, +S2. Absent: diastolic murmur, gallop, rubs, systolic murmur - GI/Abdominal GI/Abdominal exam: Present: normal bowel sounds, soft, no peritoneal signs. Absent: distended, tenderness - Extremities Exam Extremities exam: Present: warm, radial pulses palpable and symetrical. Absent : calf tenderness, cyanotic, pedal edema - Neurological Exam Neurological exam: Present: alert, oriented X3, no focal deficits - Psychiatric Psychiatric exam: Present: normal affect, normal mood
[2016-11-20] MEDS ORDERED: Loratadine 10 MG TABLET PO ONE (10:44)
[2016-11-20 10:58] VITALS: BP 165/67
[2016-11-20] MEDS ORDERED: Aminoglycoside Consult 1 EACH MC ONE (11:36)
== END 2016-11-20 11:37 | disposition home or self-care (01) ==
LOC: EMEROO 12:27 → 3NENU 12:27 → SUATTDRO 21:30
PROVIDERS: ADMIT Internal Medicine; ATTEND Internal Medicine

== ENCOUNTER 2017-01-22 09:33 | Observation (INO) ==
[2017-01-22] MEDS ORDERED: 0.9 % Sodium Chloride 1,000 ML IVC ONE (10:04)
--- NOTE | 2017-01-22 10:09 | Emergency Department Note ---
Disposition Clinical Impression: Elevated blood pressure reading, Abnormal EKG Disposition: Admitted As Inpatient Condition: Fair General Adult HPI - General Chief complaint: ED Dizziness Stated complaint: dizziness Time Seen by Provider: 01/22/17 09:41 Source: patient Mode of arrival: ambulatory Limitations: no limitations Nursing Notes Reviewed: Yes Vital Signs Reviewed: Yes - History of Present Illness HPI Narrative: 81-year-old female presents for evaluation for head pressure. Patient triaged complaint was dizziness however the patient denies dizziness. Note that she has had head pressure since a fall back in October. Patient was evaluated by her primary provider at that time had initial imaging obtained. Patient denies any fevers. No chest penetrance of breath. No nausea or vomiting. Abdominal pain. No change in vision. No dizziness. No passing out. No abdominal pain. No change in her bowels or bladder. No dysuria. Patient is requesting a head CT. Patient is not on any anticoagulation. States her past medical history is high blood pressure which she took her medicine this morning. Pain Scale: 0 - Related Data Home Medications Medication Instructions Recorded Confirmed [place]-3/Dha/Epa/Fish Oil [Fish Oil 1,000 mg PO DAILY 11/07/16 01/22/17 1,000 mg Softgel] Amlodipine Besylate 10 mg PO DAILY 11/17/16 01/22/17 Calcium Carbonate/Vitamin D3 1 tab PO DAILY 11/17/16 01/22/17 [Calcium 600-Vit D3 200 Tablet] Multivitamin [Multi-Day Vitamins] 1 tab PO DAILY 11/17/16 01/22/17 Previous Rx's Medication Instructions Recorded Docusate [Colace] 100 mg PO BID PRN #20 capsule 11/20/16 Allergies Allergy/AdvReac Type Severity Reaction Status Date / Time Amoxicillin [From Augmentin] Allergy Itching Verified 01/12/17 11:09 clavulanic acid Allergy Itching Verified 01/12/17 11:09 [From Augmentin] levofloxacin [From Levaquin] Allergy Rash Verified 01/12/17 11:09 sulfamethoxazole Allergy Rash Verified 01/12/17 11:09 [From Bactrim] trimethoprim [From Bactrim] Allergy Rash Verified 01/12/17 11:09 metoprolol AdvReac Fainting Verified 01/12/17 11:09 All systems ED: reviewed and negative except as stated. Constitutional: Reports: as per HPI. Denies: fever Eyes: Reports: as per HPI ENT ED: Reports: as per HPI Cardiovascular: Reports: as per HPI. Denies: chest pain, palpitations Respiratory: Reports: as per HPI Gastrointestinal: Reports: as per HPI. Denies: abdominal pain, nausea, vomiting Genitourinary: Reports: as per HPI. Denies: urgency, dysuria Musculoskeletal: Reports: as per HPI Integumentary: Reports: as per HPI Neurological: Reports: as per HPI Psychiatric: Reports: as per HPI Endocrine: Reports: as per HPI Hematological/Lymphatic: Reports: as per HPI Allergic/Immunologic: Reports: as per HPI Past Medical History - Past Medical History Attestation: Yes The following information was validated with the patient. 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 [employer]SOLE history: Reports: no CH[employer]SO[employer] history - Social History Smoking Status: Never smoker Smokeless Tobacco Status: No Alcohol use: Reports: none Drug use: Reports: none Physical Exam - General Limitations: no limitations General appearance: alert, in no apparent distress - Head Head exam: atraumatic, normocephalic, normal inspection - Eye Eye exam: Present: normal appearance, PERRL, EOMI - ENT ENT exam: normal exam, mucous membranes moist - Neck Neck exam: Present: normal inspection - Chest Chest inspection: Present: normal inspection, symmetric chest wall rise - Respiratory Respiratory exam: Present: normal lung sounds bilaterally. Absent: respiratory distress - Cardiovascular Cardiovascular exam: Present: normal rhythm, tachycardia - Abdominal Exam Abdominal exam: Present: soft, Non-Tender - Extremities Exam Extremities exam: Present: normal inspection. Absent: pedal edema - Back Exam Back exam: Present: normal inspection - Neurological Exam Neurological exam: Present: alert, oriented X3, CN II-XII intact - Skin Skin exam: Present: warm, dry, intact, normal color Course Course Narrative: Patients in no acute distress. Patient will get a screening cardiopulmonary evaluation. Patient is noted to be tachycardic. Patient is requesting a head CT. Given the patient's age and chief complaint bleeding this is warranted at this time. Patient will also get IV fluid hydration and cardiac monitoring. - Reevaluation(s) Reevaluation #1: Patient seen and examined. Patient is in no acute distress. Patient had an old EKG which did not reveal the ST depressions. Patient's heart rate did respond somewhat to fluids. Will get a repeat EKG. Time: 11:52 Reevaluation #2: Repeat EKG showed sinus tachycardia slightly improved. Patient still has ST depressions in V4 V5 V6. Patient continues to have a vague complaint. Patient does have some weakness. Patient states she had a bad reaction with Toprol to help with her heart rate. Time: 12:19 Vital Signs Temperature 97.8 F 01/22/17 09:34 Pulse Rate 112 01/22/17 09:34 Respiratory Rate 18 01/22/17 09:34 Blood Pressure 192/81 01/22/17 09:34 O2 Sat by Pulse Oximetry 97 01/22/17 09:34 Temperature 97.6 F 01/22/17 12:47 Pulse Rate 101 01/22/17 12:47 Respiratory Rate 16 01/22/17 12:47 Blood Pressure 180/69 01/22/17 12:47 O2 Sat by Pulse Oximetry 97 01/22/17 12:47 Oxygen Delivery Oxygen Delivery Room Air Medical Decision Making - [facility] Narrative Medical decision making narrative: 81-year-old female options for evaluation of a complaint of head pressure. Patient had a broad screening evaluation given the vagueness of the complaint. Patient was tachycardic and hypertensive upon arrival. Patient did have some EKG changes which were presumed new. Did have some subendocardial ischemia with ST depressions in the anterior lateral leads. Patient's heart rate did respond slightly dilated fluids. Patient did get a head CT which had no acute outer maladies. Patient does have a nonfocal neurologic exam and denies any dizziness. No cerebellar symptoms. Patient had a negative troponin. Given the EKG changes and the patient's main complaint with no recent history of cardiopulmonary evaluation the patient will be admitted to the hospital service for monitoring and further testing. This plan was discussed with the patient's was family at bedside. Patient was given aspirin for her EKG changes. She denies any chest pain. - Lab Data Lab results reviewed: Yes I reviewed the patient's lab results. Result diagrams: 01/22/17 10:57 01/22/17 10:57 Lab Results 01/22/17 01/22/17 01/22/17 Range/Units 10:57 10:57 10:57 WBC 6.4 (4.3-11.1) K/mcL RBC 4.85 (3.82-4.97) M/mcL Hgb 14.3 (11.5-15.4) g/dL Hct 42.7 (35.3-44.9) % MCV 88.0 (83.0-100.0) fL MCH 29.5 (28.0-33.3) pg MCHC 33.5 (31.6-35.5) g/dL RDW 12.7 (11.5-14.5) % Plt Count 261 (140-400) K/mcL MPV 10.3 (9.4-12.4) fL Immature Gran % 0.8 (0-4) % Seg Neutrophils % 74.7 % Lymphocytes % 17.3 % Monocytes % 5.5 % Eosinophils % 1.4 % Basophils % 0.3 % Neutrophils # 4.8 (1.6-8.9) K/mcL Lymphocytes # 1.1 (0.6-4.6) K/mcL Monocytes # 0.4 (0.0-1.3) K/mcL Eosinophils # 0.1 (0.0-0.6) K/mcL Basophils # 0.0 (0.0-0.2) K/mcL Sodium 135 L (136-145) mEq/L Potassium 4.0 (3.5-4.5) mEq/L Chloride 97 L (98-109) mEq/L Carbon Dioxide 27 (19-29) mEq/L BUN 12 (7-20) mg/dL Creatinine 0.70 (0.57-1.11) mg/dL Est GFR ( Amer) > 60 (> 60) Est GFR (Non-Af Amer) > 60 (> 60) BUN/Creatinine Ratio 17 (6-26) Glucose 118 H (70-99) mg/dL Calculated Osmolality 281 (280-300) Calcium 10.0 (8.6-10.8) mg/dL Total Bilirubin 0.5 (0.2-1.2) mg/dL AST 19 (5-34) Units/L ALT 16 (0-55) Units/L Alkaline Phosphatase 60 (38-126) Units/L Troponin I 0.02 (0-0.03) ng/mL Serum Total Protein 8.4 H (6.0-8.3) g/dL Albumin 4.6 (3.5-5.0) g/dL Globulin 3.8 H (2.4-3.5) g/dL Albumin/Globulin Ratio 1.2 (1.1-2.2) - Radiology Data Radiology results reviewed: Yes I reviewed the patient's radiology results. Chest X-Ray 01/22/17 10:04 IMPRESSION: No acute cardiopulmonary process. D/ / 01/22/2017 11:16:41 Concepcion Mobley MD / earnold Interpreting Provider: Concepcion Mobley MD Head CT 01/22/17 10:04 IMPRESSION: Cerebral atrophy. Atherosclerotic calcification of vessels. Chronic small vessel ischemic changes. No acute intracranial abnormality. D/ / Concepcion Mobley MD / Concepcion Mobley MD Interpreting Provider: Concepcion Mobley MD - EKG Data EKG #1 EKG attestation: Yes I reviewed and interpreted this EKG. EKG shows normal: sinus rhythm Rate: tachycardia Rhythm: NSR [place]/QRS: normal, IVCD P waves: LAE ST segment depression in: v4, v5 Q waves: v6 T wave inversions noted in: v1, v2 (Flat) When compared to previous EKG there are: changes noted (02/2012) Interpretation: nonspecific ST-T wave changes EKG #2 EKG attestation: Yes I reviewed and interpreted this EKG. EKG shows normal: sinus rhythm Rate: tachycardia Rhythm: NSR [place]/QRS: normal ST segment depression in: v4, v5, v6 When compared to previous EKG there are: changes noted Interpretation: nonspecific ST-T wave changes S.B.A.R. - S.B.A.R. Situation: Demographics Background: Presenting Complaint Assessment: Vital Signs, Course and respsone to treatment, Patient/Family Expectation Recommendation: Barrier(s) to disposition, Recommendation based on pending studies, treatments, or consults S.B.A.R. Report Given to: Dr. Anish McbrideAJason Repor Time: 12:03 Attestation Statement - Attestation Attestation: I examined this patient and my medical decision-making was reviewed with the [employer]/PA/Advanced Practice Nurse/Resident Physician. I agree with the documented findings, disposition and treatment plan as described except to the extent set forth below. 81-year-old female presents ED because of head pressure, dizziness, generalized weakness. She has had recurring episodes of intermittent generalized weakness along with what she describes as dizziness. No associated chest pain, discomfort, dyspnea or palpitations. Denies nausea or vomiting. No joint pain or myalgias. No focal weakness. No complaints of discoordination. No visual disturbances. No recent change in medications. Pleasant, elderly female in no apparent physiologic distress. Oropharynx clear mucous membranes membranes moist. Neck supple. Midline. Chest is clear to auscultation bilaterally. Cardiac exam regular, tachycardic without rubs or rales. Abdomen soft non-distended, non-tender. Neurologic exam is nonfocal. Normal cerebellar testing. EKG with inferior and and anterior ST depressions were not present on previous EKG. Metabolic workup was unremarkable. After IV fluids heart rate improved as did the ST depressions on EKG. Decision was made to admit for further evaluation given her precipitous and intermittent episodes of generalized weakness associated with her presenting EKG changes.
[2017-01-22 11:03] LABS: Basophils % 0.3 %; Eosinophils # 0.1 K/mcL (0.0-0.6); Eosinophils % 1.4 %; Hematocrit 42.7 % (35.3-44.9); Hemoglobin 14.3 g/dL (11.5-15.4); Immature Granulocytes % 0.8 % (0-4); Lymphocytes # 1.1 K/mcL (0.6-4.6); Lymphocytes % 17.3 %; Mean Corpuscular HGB Conc 33.5 g/dL (31.6-35.5); Mean Corpuscular Hemoglobin 29.5 pg (28.0-33.3); Mean Platelet Volume 10.3 fL (9.4-12.4); Monocytes # 0.4 K/mcL (0.0-1.3); Monocytes % 5.5 %; Neutrophils # 4.8 K/mcL (1.6-8.9); Platelet Count 261 K/mcL (140-400); Red Blood Count 4.85 M/mcL (3.82-4.97); Red Cell Distribution Width 12.7 % (11.5-14.5); Segmented Neutrophils % 74.7 %
[2017-01-22 11:16] LABS: Alanine Aminotransferase 16 Units/L (0-55); Albumin 4.6 g/dL (3.5-5.0); Albumin/Globulin Ratio 1.2 (1.1-2.2); Alkaline Phosphatase 60 Units/L (38-126); Aspartate Amino Transferase 19 Units/L (5-34); BUN/Creatinine Ratio 17 (6-26); Bilirubin,Total 0.5 mg/dL (0.2-1.2); Blood Urea Nitrogen 12 mg/dL (7-20); Carbon Dioxide 27 mEq/L (19-29); Chloride 97 mEq/L (98-109); Globulin 3.8 g/dL (2.4-3.5); Glucose 118 mg/dL (70-99); Osmolality,Calculated 281 (280-300); Sodium 135 mEq/L (136-145); Total Protein 8.4 g/dL (6.0-8.3); eGFR For African Americans > 60 (> 60); eGFR For Non-African Americans > 60 (> 60)
[2017-01-22] MEDS ORDERED: Aspirin 81 MG TAB.CHEW PO ONE (11:51)
[2017-01-22] MEDS ORDERED: Naloxone 0.4 MG/ML INJ IVP PRN (13:22)
[2017-01-22] MEDS ORDERED: Acetaminophen 325 MG TABLET PO PRN (13:22)
[2017-01-22] MEDS ORDERED: ALPRAZolam 0.25 MG TABLET PO PRN (13:40)
--- NOTE | 2017-01-22 13:51 | Internal Med History&Physical ---
<Abby Telles - Last Filed: 01/22/17 14:14> Date of Encounter: 01/22/17 Time of Encounter: 13:49 Assessment and Plan (1) Hypertensive urgency Current visit: Yes Status: Acute 1 patient has a history of anxiety and hypertension. She presented today because of head pressure and pain. On presentation patient's systolic blood pressure was 190. Suspect that headache may be related to elevated blood pressure. CT of head was negative. We will continue with home medications Norvasc for blood pressure control and we will add Xanax for anxiety. Her goal is to maintain systolic less than 140 2 -patient has never had a cardiac workup we will trend troponins and obtain cardiac echo to rule out any cardiac component 3 low sodium diet 4 we will obtain serum metanephrine to r/o phenochromocytoma (2) Anxiety Current visit: Yes Status: Acute 1 xanax as needed (3) DVT prophylaxis Current visit: No Status: Acute [facility] Internal Medicine - H&P: HPI Chief complaint: Head pressure Admitted From: Emergency Dept Plans for Post Hospital Care: Home History of present illness: Ms. Saleem is a 81 year old female past medical history of hypertension anxiety. According to the patient she does experience sinus infections frequently. She also sustained a fall in October which she did strike her head. She has had a large bump over her left eye for several weeks that has resolved. Over the past month she has been experiencing head pressure, dizziness, anxiety and the feeling she is going to pass out. When she has these episodes she will lie down until the feeling passes. She denies any chest pain shortness of breath palpitations however she does state her heart will race. She did see her primary care physician last week who did prescribe her some Keflex for sinusitis. She states her symptoms have continued and she presented to the ER for evaluation. According to ER records upon presentation patient was tachycardic and hypertensive. CT of head was negative for any intracranial abnormalities. EKG had nonspecific T-wave changes. Lab work was unremarkable troponin was 0.02. Patient was given aspirin as well as IV fluids and has been admitted for further workup and evaluation. Presently the patient denies any chest pain or shortness of breath. She denies any pain or discomfort at this time. Neurologically she is intact cranial nerves II through XII intact. Alert and oriented 3 and appropriate following simple commands. She denies any past cardiac history or any past cardiac workup. She does admit to anxiety as well as panic attacks. She denies any fevers chills nausea vomiting diarrhea abdominal pain Presently she is hemodynamically stable. I reviewed his case with who agrees with plan. Past Med Surg Social Fam HX - Past Medical History Medical history: hypertension, other Psychiatric history: anxiety - Past Surgical History Surgical History: non-contributory - Social History Smoking Status: Never smoker Smokeless Tobacco Status: No Alcohol use: none Drug use: none - Family History Father Hx Family Cardiac Disorders: Yes Hx Family Respiratory Disorders: No Hx Family Cancer: No Hx Family GI Disorders: No Hx Family Endocrine Disorder: No Hx Family Neuromuscular Disorders: No Hx Family Neurologic Disorders: Yes Hx Family HEENT Disorders: No Hx Family Autoimmune Disorders: No Internal Medicine - H&P: Meds [place]-3/Dha/Epa/Fish Oil [Fish Oil 1,000 mg Softgel] 1,000 mg PO DAILY 11/07/16 [History] Amlodipine Besylate 10 mg PO DAILY 11/17/16 [History] Calcium Carbonate/Vitamin D3 [Calcium 600-Vit D3 200 Tablet] 1 tab PO DAILY [History] Multivitamin [Multi-Day Vitamins] 1 tab PO DAILY 11/17/16 [History] Docusate [Colace] 100 mg PO BID PRN #20 capsule 11/20/16 [Rx] Allergies Amoxicillin [From Augmentin] Allergy (Verified 01/12/17 11:09) Itching clavulanic acid [From Augmentin] Allergy (Verified 01/12/17 11:09) Itching levofloxacin [From Levaquin] Allergy (Verified 01/12/17 11:09) Rash sulfamethoxazole [From Bactrim] Allergy (Verified 01/12/17 11:09) Rash trimethoprim [From Bactrim] Allergy (Verified 01/12/17 11:09) Rash metoprolol Adverse Reaction (Verified 01/12/17 11:09) Fainting All Systems PM: A 10-system review of systems was performed and is negative for pertinent findings except as documented above in the HPI. - Constitutional Constitutional: no chills, no fever(s), no night sweats - EENT Eyes: no change in vision, no discharge, no pain, no photophobia Nose, mouth and throat: nasal congestion, post-nasal drip, sinus pain, sinus pressure, no dysphagia, no nasal discharge, no neck pain, no sore throat - Cardiovascular Cardiovascular ROS IM: no chest pain, no diaphoresis, no dyspnea, no lightheadedness, no palpitations, no syncope - Gastrointestinal Gastrointestinal: no abdominal pain, no diarrhea, no hematemesis, no hematochezia, no melena, no nausea, no vomiting - Genitourinary Genitourinary: no change in urinary stream, no dysuria, no flank pain, no hematuria - Musculoskeletal Musculoskeletal ROS IM: no numbness, no tingling - Integumentary Integumentary IM: no rash, no unusual bruising - Neurological Neurological ROS: no confusion, no convulsions, no focal weakness, no numbness, no tingling, no tremor(s) - Hematologic/Lymphatic Hematologic/Lymphatic: no easy bruising - Constitutional Vitals: Temp Pulse Resp BP Pulse Ox 97.6 F 101 16 180/69 97 01/22/17 12:47 01/22/17 12:47 01/22/17 12:47 01/22/17 12:47 01/22/17 12:47 General appearance: Present: A&O X 3, answers questions appropriately - Head Head exam: Present: atraumatic, normocephalic - Eye Eye exam: Present: PERRL, conjuntiva pink, sclera anicteric Pupils: Present: PERRL - Neck Neck exam general surgery: Present: supple, trachea midline. Absent: lymphadenopathy - Respiratory Respiratory exam: Present: CTAB. Absent: accessory muscle use, rales, rhonchi, wheezes - Cardiovascular Cardiovascular exam: Present: RRR, +S1, +S2. Absent: diastolic murmur, gallop, rubs, systolic murmur - GI/Abdominal GI/Abdominal exam: Present: normal bowel sounds, soft, no peritoneal signs. Absent: distended, tenderness - Extremities Exam Extremities exam: Present: warm, radial pulses palpable and symetrical. Absent : calf tenderness, cyanotic, pedal edema - Neurological Exam Neurological exam: Present: CN II-XII intact, oriented X3, no focal deficits. Absent: pronater drift, facial droop, speech deficit - Skin Skin exam: Present: dry, intact Internal Med - H&P Results - Labs CBC & Chem 7: 01/22/17 10:57 01/22/17 10:57 - EKG Data -: EKG Interpreted by Myself EKG shows normal: sinus rhythm Rate: tachycardia - EKG Data Prior EKG available for review: yes When compared to previous EKG: there is no significant change - Diagnostic Studies Other Images Additional comments: Chest X-Ray 01/22/17 10:04 IMPRESSION: No acute cardiopulmonary process. D/ / 01/22/2017 11:16:41 Concepcion Mobley MD / [email or web address] Interpreting Provider: Concepcion Mobley MD Head CT 01/22/17 10:04 IMPRESSION: Cerebral atrophy. Atherosclerotic calcification of vessels. Chronic small vessel ischemic changes. No acute intracranial abnormality. D/ / 01/22/2017 12:03:55 Concepcion Mobley MD / [email or web address] Interpreting Provider: Concepcion Mobley MD <Angelo Keller T - Last Filed: 01/22/17 16:16> Date of Encounter: 01/22/17 Internal Medicine - H&P: HPI History of present illness: Ms. Saleem is a 81 year old female All Systems PM: A 10-system review of systems was performed and is negative for pertinent findings except as documented above in the HPI. - Constitutional Vitals: Temp Pulse Resp BP Pulse Ox 98.6 F 92 16 145/66 94 01/22/17 15:46 01/22/17 15:46 01/22/17 15:46 01/22/17 15:46 01/22/17 15:46 Internal Med - H&P Results - Labs CBC & Chem 7: 01/22/17 10:57 01/22/17 10:57 - Attending Attestation Seen and examined independently Plan of care discussed with patient, her daughter at the bedside and PANCHO Telles 81 F with HTN/White coat HTN, anxiety Presented with "head pressure", uncontrolled BP and tachycardia physical exam unremarkable, Labs reviewed essentially normal, CXR/Brain CT, EKG unremarkable for ST segment changes HTN Urgency, r/o ACS, possible panic attacks, check serum metanephrines, obtain ECHO, titrate antihypertensives and or add new medications Rest of details as in PANCHO Telles documentation....
[2017-01-23 06:54] LABS: Basophils % 0.4 %; Eosinophils # 0.1 K/mcL (0.0-0.6); Eosinophils % 2.3 %; Hematocrit 40.2 % (35.3-44.9); Hemoglobin 13.2 g/dL (11.5-15.4); Immature Granulocytes % 0.4 % (0-4); Lymphocytes # 1.6 K/mcL (0.6-4.6); Lymphocytes % 33.6 %; Mean Corpuscular HGB Conc 32.8 g/dL (31.6-35.5); Mean Corpuscular Hemoglobin 29.1 pg (28.0-33.3); Mean Corpuscular Volume 88.7 fL (83.0-100.0); Mean Platelet Volume 10.5 fL (9.4-12.4); Monocytes # 0.4 K/mcL (0.0-1.3); Monocytes % 7.2 %; Neutrophils # 2.7 K/mcL (1.6-8.9); Platelet Count 259 K/mcL (140-400); Red Blood Count 4.53 M/mcL (3.82-4.97); Red Cell Distribution Width 12.9 % (11.5-14.5); Segmented Neutrophils % 56.1 %
[2017-01-23] MEDS ORDERED: *HR* Enoxaparin 40 MG/0.4 ML SYRINGE SQ SCH (07:00)
[2017-01-23 07:04] LABS: BUN/Creatinine Ratio 15 (6-26); Blood Urea Nitrogen 9 mg/dL (7-20); Calcium 9.2 mg/dL (8.6-10.8); Carbon Dioxide 24 mEq/L (19-29); Chloride 102 mEq/L (98-109); Chol/HDL Ratio 2.3 (0-4.9); Cholesterol 177 mg/dL (< 200); Glucose 87 mg/dL (70-99); HDL Cholesterol 76 mg/dL (40-59); LDL Cholesterol,Calculated 91 mg/dL (0-99); Osmolality,Calculated 280 (280-300); Potassium 3.7 mEq/L (3.5-4.5); Sodium 136 mEq/L (136-145); Triglycerides 51 mg/dL (< 150); eGFR For African Americans > 60 (> 60); eGFR For Non-African Americans > 60 (> 60)
--- NOTE | 2017-01-23 07:19 | Electrocardiograph Report ---
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
[2017-01-23] MEDS ORDERED: (Omega-3/Dha/Epa/Fish Oil [Fish Oil 1,000 Mg Softgel]) PO SCH (09:00)
[2017-01-23] MEDS ORDERED: Multivit/Ca/Min/Fe/FA 1 TAB TABLET PO SCH (09:00)
[2017-01-23] MEDS ORDERED: Aspirin Enteric Coated 81 MG Tablet PO SCH (09:00)
[2017-01-23] MEDS ORDERED: Loratadine 10 MG TABLET PO SCH (09:00)
[2017-01-23] MEDS ORDERED: hydroCHLOROthiazide 25 MG TABLET PO SCH (09:00)
[2017-01-23] MEDS ORDERED: amLODIPine 5 MG TABLET PO SCH (09:00)
[2017-01-23] MEDS ORDERED: Cholecalciferol (D-3) 1,000 UNIT TABLET PO SCH (09:00)
[2017-01-23 10:53] VITALS: BP 169/66
--- NOTE | 2017-01-23 13:13 | Electrocardiograph Report ---
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
--- NOTE | 2017-01-23 13:47 | Discharge Summary ---
Date of Encounter: 01/23/17 Time of Encounter: 13:47 - Discharge Diagnosis (1) Elevated troponin Priority: Primary Status: Acute Comments: Troponin 0.02-0.07-0.05 Patient has no chest pain prior to presentation and throughout admission ECHO showed LVEF 65%, mild diastolic dysfunction, no valvular or wall motion abnormalities EKG was NSR, no ST segment changes Patient will be discharged home on ASA (2) CHF (congestive heart failure) Priority: Secondary Status: Chronic Comments: Per ECHO Patient is euvolemic Qualifiers: Congestive heart failure type: diastolic Congestive heart failure chronicity: chronic Qualified Code(s): I50.32 - Chronic diastolic (congestive ) heart failure (3) Hypertensive urgency Priority: Primary Status: Acute Comments: Patient is complaint with her medications but possibly also needs an additional medication She has allergies to metoprolol Added low dose HCTZ to her amlodipine Follow up with PCP for BP medication reconciliation Due to presence of anxiety and HTN, we ordered serum metanephrines, not yet resulted at time of discharge Recommend to followup with PCP for results and further work up I have very low suspicion for any adrenal abnormalities in this otherwise functional elderly woman (4) Anxiety Priority: Secondary Status: Chronic - Discharge Medications Prescriptions: Aspirin Enteric Coated [Aspirin EC] 81 mg PO DAILY #30 tablet. hydroCHLOROthiazide [Hydrochlorothiazide] 12.5 mg PO DAILY #30 tablet Loratadine [Claritin] 5 mg PO DAILY #30 tablet Home Medications: [place]-3/Dha/Epa/Fish Oil [Fish Oil 1,000 mg Softgel] 1,000 mg PO DAILY 11/07/16 [History] Amlodipine Besylate 10 mg PO DAILY 11/17/16 [History] Calcium Carbonate/Vitamin D3 [Calcium 600-Vit D3 200 Tablet] 1 tab PO DAILY [History] Multivitamin [Multi-Day Vitamins] 1 tab PO DAILY 11/17/16 [History] Docusate [Colace] 100 mg PO BID PRN #20 capsule 11/20/16 [Rx] Aspirin Enteric Coated [Aspirin EC] 81 mg PO DAILY #30 tablet. 01/23/17 [Rx] Loratadine [Claritin] 5 mg PO DAILY #30 tablet 01/23/17 [Rx] hydroCHLOROthiazide [Hydrochlorothiazide] 12.5 mg PO DAILY #30 tablet 01/23/17 [ Rx] Allergies/Adverse Reactions: Allergies Amoxicillin [From Augmentin] Allergy (Verified 01/12/17 11:09) Itching clavulanic acid [From Augmentin] Allergy (Verified 01/12/17 11:09) Itching levofloxacin [From Levaquin] Allergy (Verified 01/12/17 11:09) Rash sulfamethoxazole [From Bactrim] Allergy (Verified 01/12/17 11:09) Rash trimethoprim [From Bactrim] Allergy (Verified 01/12/17 11:09) Rash metoprolol Adverse Reaction (Verified 01/12/17 11:09) Fainting Procedures/tests Complete & Pending: Procedures Performed prior 72 hours Category Date Time Status EV echocardiogram Routine Y 01/22/17 13:33 Completed Date of admission: 01/22/17 12:18 Primary care physician: Shaquille Krishnamurthy MD Discharging clinician: Angelo Keller Anticipated date of discharge: 01/23/17 - Patient Status Disposition: Home, Self-Care Condition: Good Functional capacity at discharge: independent ambulation Overall status at discharge: patient is back to baseline - Discharge Instructions Follow Up With: Shaquille Krishnamurthy MD [Primary Care Provider] - Additional Instructions: MAKE AN APPOINTMENT TO FOLLOW UP WITH PCP WITHIN THE NEXT TWO WEEKS CHECK YOUR BLOOD PRESSURE AT HOME REGULARLY REPRESENT TO ER SHOULD YOU DEVELOP CHEST PAIN, SHORTNESS OF BREATH OR DIZZINESS - Diet and Activity Activity: resume usual activities as tolerated Interval History: Ms. Saleem is a 81 year old female past medical history of hypertension anxiety. According to the patient she does experience sinus infections frequently. She presented with complains of feeling head pressure, dizziness, anxiety and the feeling she is going to pass out for the past month. She denied any chest pain shortness of breath palpitations however she does state her heart will race. She did see her primary care physician last week who did prescribe her some Keflex for sinusitis. She states her symptoms have continued and she presented to the ER for evaluation. According to ER records upon presentation patient was tachycardic and hypertensive. CT of head was negative for any intracranial abnormalities. EKG was NSR, no ST segment or T wave changes. Lab work was initially unremarkable . troponin was 0.02. Patient was given aspirin as well as IV fluids and has been admitted for further workup and evaluation. Hospital course: Patient remained asymptomatic during admission, her BP was controlled on her home medication Further work up showed troponin elevation of 0.07, then decreased to 0.05, from demand ischemia due to uncontrolled HTN on admission ECHO showed EF 65%, no wall motion or valvular abnormalities, mild LVDD HCTZ was added to patient's antihypertensive regimen Patient remains asymptomatic, ambulatory and clinically stable We ordered serum metanephrines to assess for pheochromocytoma as posisble cause of patient's anxiety/uncontrolled BP/tachycardia. It will not be resulted in the next 24 hrs, patient can follow up with her PCP for this result and further evaluation if result is abnormal I will also follow up the results and call the patient should we need her to see her PCP earlier Rest of details as in each diagnosis - Time Spent with Patient Total time spent providing and/or coordinating discharge services: Less than 30 minutes - Constitutional Vitals: Temp Pulse Resp BP Pulse Ox 98.5 F 76 18 169/66 95 01/23/17 10:50 01/23/17 10:50 01/23/17 10:50 01/23/17 10:50 01/23/17 10:50 General appearance: Present: A&O X 3, pleasant, no acute distress, answers questions appropriately - Head Head exam: Present: atraumatic, normocephalic - Eye Eye exam: Present: PERRL, conjuntiva pink, sclera anicteric Pupils: Present: PERRL - Neck Neck exam general surgery: Present: supple, trachea midline. Absent: lymphadenopathy - Respiratory Respiratory exam: Present: CTAB. Absent: accessory muscle use, rales, rhonchi, wheezes - Cardiovascular Cardiovascular exam: Present: RRR, +S1, +S2. Absent: diastolic murmur, gallop, rubs, systolic murmur - GI/Abdominal GI/Abdominal exam: Present: normal bowel sounds, soft, no peritoneal signs. Absent: distended, tenderness - Extremities Exam Extremities exam: Present: warm, radial pulses palpable and symetrical. Absent : calf tenderness, cyanotic, pedal edema - Neurological Exam Neurological exam: Present: alert, CN II-XII intact, oriented X3, no focal deficits. Absent: pronater drift, facial droop, speech deficit - Skin Skin exam: Present: dry, intact
[2017-01-26 17:29] LABS: Metanephrine, Plasma 0.26 nmol/L (0.00-0.49)
== END 2017-01-23 16:50 | disposition home or self-care (01) ==
LOC: 2ANU 09:33 → EMEROO 09:33 → 2ANU 12:39
PROVIDERS: ADMIT Internal Medicine; ATTEND Internal Medicine